=== PATIENT | female | born 1960 | race Caucasian/White ===

== ENCOUNTER 2019-04-02 12:31 | Emergency (ER) | payer MEDICAID ==
[~2019-04-02] VITALS: Ht 157.5 cm; Wt 124.7 kg
[2019-04-02 12:43] VITALS: BP_SYST 116
--- NOTE | 2019-04-02 12:54 | NUR ---
ER Dr. WALKER at bedside examining patient.
--- NOTE | 2019-04-02 13:03 | NUR ---
Patient to ER bed 05 to gown for evaluation. Side rails up.
--- NOTE | 2019-04-02 13:05 | NUR ---
PATIENT CAME IN COMPLAINING OF PAIN TO LOWER BACK AND RIGHT KNEE 05/17. PATIENT WAS WALKING WHEN HER KNEE "LOCKED OUT" AND SHE FELL. PATIENT DENIES HITTING HEAD AND KO. PATIENT DENIES SOB. PATIENT ALERT AND ORIENTED X4.
--- NOTE | 2019-04-02 13:06 | NUR ---
PATIENT LEAVING TO X RAY VIA GURNEY IN STABLE CONDITION.
[2019-04-02] MEDS ORDERED: MORPHINE 4 MG/ML INJ. SYRINGE IVP ONE (13:15)
[2019-04-02] MEDS ORDERED: ONDANSETRON HCL 4 MG/2 ML VIAL IVP ONE (13:15)
--- NOTE | 2019-04-02 13:34 | NUR ---
PATIENT BACK FROM X RAY IN STABLE CONDITION.
--- NOTE | 2019-04-02 13:59 | NUR ---
# 20 gauge angiocath placed to right AC. Use of asceptic technique. Opsite placed over site. Blood return noted. Flushed with 10 cc of normal saline. No evidence of infiltration noted. Patient tolerated well.
--- NOTE | 2019-04-02 15:15 | NUR ---
DR WALKER AT BEDSIDE TALKING TO PATIENT.
[2019-04-02] MEDS ORDERED: KETOROLAC TROMETHAMINE 30 MG VIAL IVP ONE (15:30)
--- NOTE | 2019-04-02 17:20 | NUR ---
Patient given written and verbal discharge instructions and verbalizes understanding. ER MD discussed with patient the results and treatment provided. Patient in stable condition. ID arm band removed. IV catheter removed intact and dressing applied, no active bleeding. Rx of robaxin and tramadol given. Patient educated on pain management and to follow up with PMD. Pain Scale 4/10 tolerable and sent home with pain rx. Opportunity for questions provided and answered. Medication side effect fact sheet provided.
[2019-04-02 17:22] VITALS: BP_SYST 108
== END 2019-04-02 17:22 | disposition home or self-care (01) ==
LOC: SED 12:31
DX: S30.0XXA Contusion of lower back and pelvis, initial encounter (principal); I10 Essential (primary) hypertension; Z96.651 Presence of right artificial knee joint; W01.0XXA Fall on same level from slipping, tripping and stumbling without subsequent striking against object, initial encounter; Y93.89 Activity, other specified; Y92.89 Other specified places as the place of occurrence of the external cause; Y99.8 Other external cause status
CPT/HCPCS: 72100; 73564; 96374; 96375; 99283; J1885; J2270; J2405

== ENCOUNTER 2019-10-07 12:48 | Emergency (ER) | payer MEDICAID ==
[~2019-10-07] VITALS: Ht 152.4 cm; Wt 99.8 kg
[2019-10-07 12:50] VITALS: BP_SYST 168
--- NOTE | 2019-10-07 13:00 | NUR ---
Placed in room 3 . Placed on surveillance system monitor, blood pressure machine and pulse oximeter. To gown for exam. Side rails up. Assumed care.
--- NOTE | 2019-10-07 13:05 | NUR ---
Patient arrived via POV with family. Patient was leaving [place] and had a trip and fall. Patient struck chest and abdomen. Patient notes pain to right pinky finger. Patient did not strike head or have LOC. Patient has history of abdominal surgery for repair of hernia. Patient states she is having nausea. Will continue to follow up and monitor.
--- NOTE | 2019-10-07 13:07 | NUR ---
ER at bedside examining patient.
[2019-10-07] MEDS ORDERED: HYDROcodone/ACETAMIN 10-325 MG TAB PO ONE (13:30)
[2019-10-07] MEDS ORDERED: ONDANSETRON 4 MG ODT TAB PO ONE (13:30)
[2019-10-07 13:45] LABS: BASOPHILS # (AUTO) 0.1 K/uL (0.0-0.2); BASOPHILS % (AUTO) 0.9 % (0.0-2.0); EOSINOPHILS # (AUTO) 0.2 K/uL (0.0-0.4); EOSINOPHILS % (AUTO) 2.2 % (0.0-4.0); HEMOGLOBIN 13.4 g/dL (12.0-16.0); LYMPHOCYTES # (AUTO) 2.2 K/uL (1.0-5.5); LYMPHOCYTES % (AUTO) 24.9 % (20.5-51.5); MEAN CORPUSCULAR HEMOGLOBIN 30 pg (27-31); MEAN CORPUSCULAR HGB CONC 33 % (32-36); MEAN CORPUSCULAR VOLUME 91 fL (79.0-98.0); MONOCYTES # (AUTO) 0.5 K/uL (0.0-1.0); MONOCYTES % (AUTO) 6.1 % (1.7-9.3); NEUTROPHILS # (AUTO) 5.8 K/uL (1.8-7.7); NEUTROPHILS % (AUTO) 65.9 % (40.0-70.0); PLATELET COUNT (AUTO) 196 K/uL (130-430); RED BLOOD CELL COUNT(AUTO) 4.51 MIL/uL (4.2-6.2); WHITE BLOOD COUNT (AUTO) 8.9 K/uL (4.8-10.8)
[2019-10-07 13:55] LABS: CALCIUM 8.9 mg/dL (8.4-11.0); CREATININE 0.58 mg/dL (0.55-1.30); POTASSIUM 3.9 mmol/L (3.5-5.1)
[2019-10-07 14:01] LABS: TOTAL BILIRUBIN 0.4 mg/dL (0.0-1.0)
[2019-10-07 14:03] LABS: PROTHROMBIN TIME 10.4 SECS (9.5-12.5)
[2019-10-07 15:09] VITALS: BP_SYST 144
--- NOTE | 2019-10-07 15:09 | NUR ---
Patient given written and verbal discharge instructions and verbalizes understanding. ER MD discussed with patient the results and treatment provided. Patient in stable condition. ID arm band removed. Rx of ibuprofen, ultram given. Patient educated on pain management and to follow up with PMD. Pain Scale 3/10. Opportunity for questions provided and answered.
== END 2019-10-07 15:09 | disposition home or self-care (01) ==
LOC: SED 12:48
DX: S30.1XXA Contusion of abdominal wall, initial encounter (principal); S63.696A Other sprain of right little finger, initial encounter; I10 Essential (primary) hypertension; E78.5 Hyperlipidemia, unspecified; W01.0XXA Fall on same level from slipping, tripping and stumbling without subsequent striking against object, initial encounter; Y93.89 Activity, other specified; Y92.89 Other specified places as the place of occurrence of the external cause; Y99.8 Other external cause status
CPT/HCPCS: 36415; 71045; 73120; 74176; 80053; 82150; 83690; 84703; 85025; 85610; 85730; 99285; Q0162

== ENCOUNTER 2020-02-13 09:25 | Emergency (ER) | payer MEDICAID ==
[~2020-02-13] VITALS: Ht 162.6 cm; Wt 115.7 kg
[2020-02-13 09:34] VITALS: BP_SYST 170
--- NOTE | 2020-02-13 09:35 | NUR ---
Pt bib ambulance from home for n/v. Pt reports she was in ER yesterday and given tramadol for ankle pain. She took her first dose today and began vomitting. V/S stable, pt is afebrile. Currently resting in bed, will continue to monitor.
--- NOTE | 2020-02-13 09:50 | NUR ---
ER Dr. Beach at bedside examining patient.
[2020-02-13] MEDS ORDERED: ONDANSETRON 4 MG ODT TAB PO ONE (10:00)
--- NOTE | 2020-02-13 11:10 | NUR ---
Patient given written and verbal discharge instructions and verbalizes understanding. ER MD discussed with patient the results and treatment provided. Patient in stable condition. ID arm band removed. Rx of Zofran given. Patient educated on pain management and to follow up with PMD. Pain Scale 3. Opportunity for questions provided and answered. Medication side effect fact sheet provided.
[2020-02-13 11:12] VITALS: BP_SYST 170
== END 2020-02-13 11:10 | disposition home or self-care (01) ==
LOC: SED 09:25
DX: R11.2 Nausea with vomiting, unspecified (principal); I10 Essential (primary) hypertension
CPT/HCPCS: 99283; Q0162

== ENCOUNTER 2024-03-28 11:44 | Emergency (ER) | payer MEDICAID ==
[~2024-03-28] VITALS: Ht 157.5 cm; Wt 134.7 kg
[2024-03-28 12:16] LABS: BASOPHILS # (AUTO) 0.1 K/uL (0.0-0.2); EOSINOPHILS # (AUTO) 0.2 K/uL (0.0-0.4); HEMATOCRIT 43.4 % (36-48); HEMOGLOBIN 14.5 g/dL (12.0-16.0); LYMPHOCYTES # (AUTO) 2.3 K/uL (1.0-5.5); MEAN CORPUSCULAR HEMOGLOBIN 30 pg (27-31); MEAN CORPUSCULAR HGB CONC 33 % (32-36); MEAN CORPUSCULAR VOLUME 91 fL (79.0-98.0); MONOCYTES # (AUTO) 0.6 K/uL (0.0-1.0); MONOCYTES % (AUTO) 7.2 % (1.7-9.3); NEUTROPHILS # (AUTO) 4.6 K/uL (1.8-7.7); NEUTROPHILS % (AUTO) 58.8 % (40.0-70.0); PLATELET COUNT (AUTO) 193 K/uL (130-430); RED BLOOD CELL COUNT(AUTO) 4.78 MIL/uL (4.2-6.2); RED CELL DISTRIBUTION WIDTH 14.1 % (9.0-15.0); WHITE BLOOD COUNT (AUTO) 7.8 K/uL (4.8-10.8)
[2024-03-28] MEDS: HYDROcodone/ACETAMIN 10-325 MG TAB PO ONE (12:18)
[2024-03-28] MEDS: KETOROLAC TROMETHAMINE 60 MG/2 ML VIAL IM ONE (12:18)
[2024-03-28 12:20] VITALS: BP_SYST 156; PULSE 66; RESP 18; TEMP 96.6; O2SAT 92
[2024-03-28 12:35] LABS: PROTHROMBIN TIME 10.9 SECS (9.5-12.5)
[2024-03-28 12:40] LABS: ALBUMIN 3.3 g/dL (3.4-4.8); BILIRUBIN,DIRECT 0.2 mg/dL (0.0-0.3); CALCIUM 8.8 mg/dL (8.4-11.0); CREATININE 0.63 mg/dL (0.55-1.30); POTASSIUM 3.8 mmol/L (3.5-5.1); TOTAL BILIRUBIN 0.6 mg/dL (0.0-1.0); TOTAL PROTEIN, SERUM 7.5 g/dL (6.4-8.3)
[2024-03-28 12:46] LABS: ERYTHROCYTE SEDIMENTATION RATE 39 MM/HR (0-20)
[2024-03-28] MEDS ORDERED: IBUP-1971 PO (13:50)
[2024-03-28] MEDS ORDERED: TRAM50TA2 PO (13:50)
[2024-03-28 16:08] VITALS: BP_SYST 156; PULSE 66; RESP 18; TEMP 96.6; O2SAT 92
== END 2024-03-28 16:07 | disposition home or self-care (01) ==
LOC: SED 11:44
DX: G89.29 Other chronic pain (principal); M54.50 Low back pain, unspecified; I10 Essential (primary) hypertension; E78.5 Hyperlipidemia, unspecified; E66.01 Morbid (severe) obesity due to excess calories; Z68.43 Body mass index [BMI] 50.0-59.9, adult
CPT/HCPCS: 99285; 72131; 80076; 80048; 85025; 85610; 85651; 85730; 36415; 96372; J1885